=== PATIENT | male | born 1975 | race Caucasian/White ===

== ENCOUNTER 2022-04-07 18:40 | Emergency (ER) | payer OTHER ==
[2022-04-07 19:05] VITALS: BP 128/82; PULSE 82; RESP 18; TEMP 98.3; BMI 29.5
[2022-04-07] MEDS ORDERED: SODIUM CHLORIDE 1,000 ML IV STA (19:38)
[2022-04-07] MEDS ORDERED: ACETAMINOPHEN 1000 MG/100 ML BAG IVPB ONE (19:38)
[2022-04-07] MEDS ORDERED: METOCLOPRAMIDE HCL INJECTION 10 MG/2 ML VIAL IVPUSH ONE (19:38)
[2022-04-07] MEDS ORDERED: METOCLOPRAMIDE HCL INJECTION 10 MG/2 ML VIAL ONE (19:47)
[2022-04-07] MEDS ORDERED: ACETAMINOPHEN INJECTION 100 ML IVPB ONE (19:52)
== END 2022-04-07 20:51 | disposition home or self-care (01) ==
LOC: JERFT 18:40
PROC: 3E033NZ Introduction of Analgesics, Hypnotics, Sedatives into Peripheral Vein, Percutaneous Approach (ICD-10-PCS; principal; 2022-04-07)
PROC: 3E033GC Introduction of Other Therapeutic Substance into Peripheral Vein, Percutaneous Approach (ICD-10-PCS; 2022-04-07)
PROC: 3E033GC Introduction of Other Therapeutic Substance into Peripheral Vein, Percutaneous Approach (ICD-10-PCS; 2022-04-07)
PROC: 3E0337Z Introduction of Electrolytic and Water Balance Substance into Peripheral Vein, Percutaneous Approach (ICD-10-PCS; 2022-04-07)
DX: R51.9 Headache, unspecified (principal)
CPT/HCPCS: 70450-TC; 99285-25

== ENCOUNTER 2022-12-12 15:23 | Emergency (ER) | payer OTHER ==
[2022-12-12 15:44] VITALS: BP 130/83; PULSE 76; RESP 18; TEMP 98.2; BMI 29.5
[2022-12-12] MEDS ORDERED: SODIUM CHLORIDE 1,000 ML IV STA (16:51)
[2022-12-12] MEDS ORDERED: KETOROLAC TROMETHAMINE 30 MG/1 ML VIAL IM ONE (16:52)
[2022-12-12] MEDS ORDERED: METOCLOPRAMIDE HCL INJECTION 10 MG/2 ML VIAL IVPUSH ONE (16:52)
[2022-12-12] MEDS ORDERED: KETOROLAC TROMETHAMINE 30 MG/1 ML VIAL ONE (17:09)
[2022-12-12] MEDS ORDERED: METOCLOPRAMIDE HCL INJECTION 10 MG/2 ML VIAL ONE (17:09)
[2022-12-12 17:19] LABS: BASO % 0.9 % (0-2.0); EOS % 3.1 % (0-4.5); HEMATOCRIT 40.7 % (35.4-49); HEMOGLOBIN 13.8 GM/dL (11.7-16.9); LYMPH % 39.4 % (8-40); MCH 30.6 pg (25.7-33.7); MCHC 33.9 g/dl (32.0-35.9); MEAN CELL VOLUME 90.3 fl (80-96); MEAN PLT VOLUME 9.6 fl (7.5-11.1); MONO % 9.7 % (3.8-10.2); NEUT % 46.9 % (42.8-82.8); PLATELET COUNT 319 10^3/uL (134-434); RBC 4.51 M/mm3 (4.00-5.60); RDW 12.9 % (11.9-15.9); WHITE BLOOD COUNT 8.7 K/mm3 (4.0-10.0)
[2022-12-12 18:21] LABS: ALBUMIN 4.4 g/dl (3.4-5.0); BLOOD UREA NITROGEN 9.2 mg/dL (7-18)
[2022-12-12 18:23] LABS: CALCIUM 9.8 mg/dL (8.5-10.1)
[2022-12-12 18:24] LABS: CREATININE 0.8 mg/dL (0.55-1.3)
[2022-12-12 18:26] LABS: BILIRUBIN,TOTAL 0.3 mg/dL (0.2-1); TOT PROT 8.2 g/dl (6.4-8.2)
== END 2022-12-12 18:27 | disposition home or self-care (01) ==
LOC: JERFT 15:23
PROC: 3E033GC Introduction of Other Therapeutic Substance into Peripheral Vein, Percutaneous Approach (ICD-10-PCS; principal; 2022-12-12)
PROC: 3E0337Z Introduction of Electrolytic and Water Balance Substance into Peripheral Vein, Percutaneous Approach (ICD-10-PCS; 2022-12-12)
PROC: 3E0233Z Introduction of Anti-inflammatory into Muscle, Percutaneous Approach (ICD-10-PCS; 2022-12-12)
DX: R51.9 Headache, unspecified (principal); Z20.822 Contact with and (suspected) exposure to COVID-19
CPT/HCPCS: 0241U-QW; 36415; 80053; 85025; 99284-25